=== PATIENT | female | born 1985 ===

== ENCOUNTER 2017-02-28 21:20 | Emergency (ER) | payer MEDICAID ==
[2017-02-28 21:38] VITALS: RESP 16; O2SAT 99
[2017-02-28] MEDS ORDERED: Sodium Chloride 0.9% 1,000 ML IV STA (21:41)
[2017-02-28 22:12] LABS: BASO # 0.1 K/uL (0.0-0.2); BASO % 0.3 % (0.0-2.0); EOS # 0.1 K/uL (0.0-0.7); EOS % 0.6 % (0.0-4.0); HEMATOCRIT 36.3 % (34.0-47.0); LYMPH # 1.5 K/uL (1.0-4.3); LYMPH % 8.5 % (20.0-40.0); MEAN CELL VOLUME 95.5 fl (81.0-99.0); MEAN CORPUSCULAR HEMOGLOBIN 31.8 pg (27.0-31.0); MEAN CORPUSCULAR HGB CONC 33.3 g/dL (33.0-37.0); MEAN PLATELET VOLUME 10.5 fl (7.2-11.7); NEUT # 14.7 K/uL (1.8-7.0); NEUT % 84.6 % (50.0-75.0); PLATELET COUNT 218 K/uL (130-400); RED CELL DISTRIBUTION WIDTH 13.9 % (11.5-14.5); WHITE BLOOD COUNT 17.3 K/uL (4.8-10.8)
[2017-02-28 22:22] LABS: ALB/GLOB RATIO 1.1 (1.0-2.1); ALKALINE PHOSPHATASE 66 U/L (38-126); ALT/SGPT 29 U/L (9-52); AST/SGOT 26 U/L (14-36); BILIRUBIN,TOTAL 0.4 mg/dl (0.2-1.3); BLOOD UREA NITROGEN 9 mg/dl (7-17); CALCIUM 9.8 mg/dL (8.4-10.2); CARBON DIOXIDE 23 mmol/L (22-30); CHLORIDE 102 mmol/L (98-107); GFR AFRICAN-AMERICAN > 60; GLUCOSE,RANDOM 117 mg/dL (65-105); POTASSIUM 3.9 MMOL/L (3.6-5.0); SODIUM 136 mmol/l (132-148); TOTAL PROTEIN 8.1 G/DL (6.3-8.2)
[2017-02-28 22:31] LABS: PARTIAL THROMBOPLASTIN TIME 25.6 SECONDS (23.3-32.5)
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
[2017-02-28 23:27] LABS: BASOPHIL 1 % (0-2); LARGE PLATELETS PRESENT; NEUTROPHIL 91 % (42-75); REACTIVE LYMPHOCYTES 1 % (0-0); TOTAL CELLS COUNTED 100
[2017-03-01 08:50] VITALS: BP 133/76; PULSE 89; TEMP 98.6
--- NOTE | 2017-03-02 01:27 | CARD ---
APPROVED REPORT EKG Measurement Heart [id number] <Conclusion> Sinus tachycardia Minimal voltage criteria for LVH, may be normal variant Borderline ECG
== END 2017-03-01 01:10 | disposition home or self-care (01) ==
LOC: H.ER 21:20
DX: F32.9 Major depressive disorder, single episode, unspecified (principal); T50.901A Poisoning by unspecified drugs, medicaments and biological substances, accidental (unintentional), initial encounter; F41.9 Anxiety disorder, unspecified